=== PATIENT | male | born 1980 | race Asian ===

== ENCOUNTER 2019-06-12 11:56 | Outpatient (CLI) | payer BC ==
--- NOTE | 2019-06-12 13:13 | MRI ---
MRI lumbar spine noncontrast: HISTORY: Back pain. Right-sided sciatica x2 months. COMPARISON: None FINDINGS: Appropriate T1 marrow signal intensity of the lumbar vertebra. Lumbar spine vertebral body height is maintained. No fracture. No significant STIR hyperintensity to suggest vertebral body edema or ligamentous injury. Straightening of normal lumbar lordosis may be due to patient position or muscle spasm Appropriate signal intensity of the paraspinal muscles. Appropriate signal intensity visualized solid organs Conus medullaris terminates at the inferior aspect of T12 T12-L1:No significant central canal stenosis or significant neural foraminal narrowing L1-L2:Disc desiccation with mild loss of disc space height. Broad-based disc bulge with a small centr al disc protrusion. There is an associated annular fissure. Mild central canal stenosis. Bilaterally, neural foramina are patent L2-L3:Minimal desiccation with minimal loss of disc space height. Broad-based disc bulge with a left subarticular disc protrusion. Mild central canal stenosis. Right subarticular zone is unremarkable. Disc material abuts but does not obscure the traversing left L3 nerve root. Bilaterally, neural pankaj trang are patent L3-L4:Adequate disc hydration. Broad-based disc bulge, minimally flattens the ventral thecal sac. Mil d central canal stenosis. Bilaterally, neural foramina are patent. L4-L5:Adequate disc hydration. Broad-based disc bulge, minimally flattens the ventral thecal sac. Mil d central canal stenosis. Bilaterally, mild neural foramina predominantly due to disc material and to lesser extent facet hypertrophy. L5-S1:Desiccation with moderate to severe loss of disc space height. Broad-based disc bulge with a le ft and right subarticular disc protrusion. There is no significant mass effect upon the thecal sac. Disc material is noted in bilateral subarticular zones. Near complete obscuration of bilateral betsey sing S1 nerve roots. There is mild facet hypertrophy with fluid in both facet joints. Moderate right and mild left neural foraminal narrowing. IMPRESSION: 1. Annular fissure at L1-L2, without significant central stenosis. 2. Broad-based disc bulge at L2-L3 with a left subarticular disc protrusion. Disc material abuts but does not obscure the traversing left L3 nerve root. 3. Moderate to severe loss of disc space at L5-S1. Near complete obscuration of bilateral traversing S1 nerve roots. Moderate right neural foraminal narrowing.
== END 2019-06-12 11:57 | disposition home or self-care (01) ==
LOC: MRI 11:56
DX: M54.41 Lumbago with sciatica, right side (principal); M51.26 Other intervertebral disc displacement, lumbar region; Q05.7 Lumbar spina bifida without hydrocephalus
CPT/HCPCS: 72148; 93922